=== PATIENT | female | born 1980 | race African-American/Black ===

== ENCOUNTER 2018-07-08 15:30 | Outpatient (CLI) | payer MEDICAID ==
--- NOTE | 2018-07-08 16:44 | ULT ---
TRANSABDOMINAL AND TRANSVAGINAL PELVIC ULTRASOUND WITH GRAYSCALE, COLOR-FLOW AND SPECTRAL DOPPLER ANNA GING: HISTORY: Menorrhagia, irregular periods FINDINGS: The uterus measures 10.3 x 5.8 x 5 cm without focal mass or endometrial fluid. Nabothian cysts are se en in the cervix. The endometrium measures 8 mm in thickness. The right ovary measures 3 x 3 x 2.2 cm in the left ovary measures 3.3 x 2.1 x 1.1 cm. Flow is demons trated to both ovaries. There is a 2 cm cyst in the left ovary. No adnexal mass or free fluid in the cul-de-sac is identified. IMPRESSION: No significant abnormalities are seen.
== END 2018-07-08 15:31 | disposition home or self-care (01) ==
LOC: BICULT 15:30
PROVIDERS: ATTEND Nurse Practitioner Women's Health
DX: N92.1 Excessive and frequent menstruation with irregular cycle (principal)
CPT/HCPCS: 76856